=== PATIENT | female | born 1950 | race African-American/Black ===

== ENCOUNTER 2019-10-02 11:39 | Inpatient (IN) ==
[2019-10-02] MEDS ORDERED: ASPIRIN PO ONE (11:47)
[2019-10-02 12:11] LABS: EOS# 0.02 X1000 (0.0-0.7); EOS% 0.2 % (0.0-10.0); HEMATOCRIT 37.8 % (37.0-47.0); HEMOGLOBIN 12.5 g/dL (12.0-16.0); IMM GRAN# 0.05 X1000 (0.0-0.04); IMM GRAN% 0.4 % (0.0-0.5); LYMPH# 5.66 X1000 (1.2-3.4); LYMPH% 42.8 % (20.5-51.1); MCH 22.1 PG (27-31); MCHC 33.1 g/dL (33-37); MCV 66.8 FL (81-99); MONO# 0.84 X1000 (0.11-0.59); MONO% 6.4 % (1.7-9.3); MPV 12.2 FL (7.4-10.4); NEUT# 6.64 X1000 (1.4-6.5); NEUT% 50.2 % (42.2-75.2); PLT 212 X1000 (130-400); RBC 5.66 XMIL (4.2-5.4); RDW 16.1 % (11.5-14.5); WBC 13.21 X1000 (4.8-10.8)
--- NOTE | 2019-10-02 12:21 | Diag Imaging Result Doc PS360 ---
EXAM: CHEST-2 VIEWS 10/02/2019 HISTORY: chest pain TECHNIQUE: PA and lateral chest COMMENT: Compared to 07/15/2018 there has been no significant change in the appearance of the chest. IMPRESSION: No evidence of acute disease. Electronically signed by Liban Klein 10/02/2019 12:19 PM
--- NOTE | 2019-10-02 12:25 | EKG Report ---
Test Performed on : 10/02/2019 11:49:11 AM Test Reason : chest pain Blood Pressure : / mmHG Vent. Rate : 099 BPM Atrial Rate : 099 BPM P-R Int : 124 ms QRS Dur : 078 ms QT Int : 320 ms P-R-T Axes : 062 040 058 degrees QTc Int : 410 ms Normal sinus rhythm. Normal ECG When compared with ECG of 04-DEC-2009 14:23, T wave inversion no longer evident in Inferior leads Unconfirmed Result
[2019-10-02 12:33] LABS: ALBUMIN 4.1 g/dL (3.5-5.0); CALCIUM 9.4 mg/dL (8.8-10.2); CREATININE 1.1 mg/dL (0.5-0.9); POTASSIUM 4.4 mmol/L (3.5-5.1); TOTAL BILIRUBIN 0.5 mg/dL (0.20-1.00); TOTAL PROTEIN 6.8 g/dL (6.3-8.3)
[2019-10-02 12:43] LABS: INR 0.99; PROTIME 13.6 Seconds (11.0-16.0)
[2019-10-02] MEDS ORDERED: PEPCID IV ONE (13:27)
[2019-10-02] MEDS ORDERED: G.I. COCKTAIL PO ONE (13:27)
[2019-10-02] MEDS ORDERED: PROTONIX IV ONE (13:27)
[2019-10-02] MEDS ORDERED: ZOFRAN IV ONE (13:27)
[2019-10-02] MEDS ORDERED: SODIUM CHLORIDE 0.9% INJ ONE ×2 (13:29)
--- NOTE | 2019-10-02 14:15 | PROVIDER DOCUMENTATION ---
This chart was entered by Malia Lewis Scribe, acting as scribe for Wilfredo Epps MD. HPI-Chest Pain - General Chief Complaint: Chest Pain Stated Complaint: CHEST PAIN Time Seen by Provider: 10/02/19 11:51 Source: patient Allergies/Adverse Reactions: Patient Allergies Allergy/AdvReac Type Severity Reaction Status Date / Time codeine Allergy SWELLING Verified 07/12/18 21:10 ibuprofen Allergy Unknown Verified 07/12/18 21:10 Iodinated Contrast Media Allergy ANAPHYLAXIS Verified 07/12/18 21:10 meloxicam [From Mobic] Allergy ITCHING Verified 07/12/18 21:10 Penicillins Allergy ITCHING Verified 07/12/18 21:10 saccharin Allergy SWELLING Verified 07/12/18 21:10 Sulfa (Sulfonamide Allergy SWELLING Verified 07/12/18 21:10 Antibiotics) sulfamethoxazole Allergy ITCHING Verified 07/12/18 21:10 [From Bactrim] trimethoprim [From Bactrim] Allergy ITCHING Verified 07/12/18 21:10 levofloxacin [From Levaquin] AdvReac Unknown Verified 07/12/18 21:10 Xqxvyep-And-Ceq Reductase AdvReac Unknown Verified 07/12/18 21:10 Inhibitor Home Medications: Home Medication List Medication Instructions Recorded Confirmed Last Taken Type Escitalopram Oxalate [Lexapro] 10 mg PO DAILY 06/14/16 07/13/18 07/12/18 09:00 History Lisinopril 10 mg PO DAILY 06/14/16 07/13/18 07/12/18 09:00 History Loratadine [Claritin] 10 mg PO DAILY 08/14/16 07/13/18 07/11/18 07:00 History Lorazepam [Ativan] 1 mg PO BID 08/14/16 07/13/18 07/11/18 22:00 History Multivitamins/Minerals [Centrum 1 each PO DAILY 08/14/16 07/13/18 07/12/18 09:00 History Tablet] Omeprazole [Prilosec] 40 mg PO BID #60 capsule. 08/15/16 07/13/18 07/11/18 22:00 Rx Mometasone/Formoterol [Dulera 100 2 puff INH BID 01/05/18 07/13/18 07/08/18 09:00 History Mcg/5 Mcg Inhaler] Aspirin [Aspir-Low] 81 mg PO DAILY 07/13/18 07/13/18 07/12/18 08:00 History Albuterol Sulfate Inhaler 2 puff INH Q4H PRN PRN #1 inhaler 07/16/18 Unknown Rx [Ventolin Hfa] Amitriptyline HCl 20 mg PO HS #0 07/16/18 07/13/18 07/11/18 22:00 Rx Cephalexin [Keflex] 500 mg PO BID #20 cap 07/16/18 Unknown Rx Dicyclomine [Bentyl] 10 mg PO 4XDAY PRN PRN #60 cap 07/16/18 Unknown Rx Fluconazole 150 mg PO DAILY #3 tab 07/16/18 Unknown Rx - History of Present Illness-CP Nature of Presenting Problem: 69 yobf presents to the ed with c/o acute onset central chest pain and bilateral ear pain 15 minutes prior to arrival. pt sts pain is 9/10 on exam but appears to be in no distress and is nontoxic in appearance. pt has hx of HTN but sts no cardiac issues Location: reports: central Chest Pain Radiation: reports: other (bilateral ear pain) Quality of Pain: reports: aching Severity in ED: mild (pt sts severe but is in no distress) Onset/Duration: other (15 minutes prior to arrival) Timing: still present (intermittent), intermittent Context/Activities at Onset: reports: light activity Modifying Factors: improves with: nothing Associated Symptoms: denies: abdominal pain, back pain, diaphoresis, dizziness, nausea, shortness of breath, vomiting Nitro Today/Relief: no nitro taken today Aspirin Treatment Today: 325 mg x 1, provided by ED Prior Chest Pain/Cardiac Workup: reports: no prior chest pain Similar Symptoms Previously?: No Recently Seen Here or By Another Healthcare Provider: No Review of Systems - Adult - REVIEW OF SYSTEMS - ADULT Constitutional: denies: chills, fever Eyes: reports: no symptoms reported Ears, Nose, Mouth & Throat: reports: no symptoms reported Cardiovascular: reports: see HPI, chest pain. denies: palpitations, syncope Respiratory: denies: cough, pleurisy, shortness of breath, wheezing Gastrointestinal: denies: abdominal pain, diarrhea, nausea, vomiting Genitourinary: reports: no symptoms reported Musculoskeletal: denies: back pain, neck pain Integumentary: reports: no symptoms reported Neurological: denies: dizziness/vertigo, headache/migraines Psychiatric: reports: no symptoms reported Endocrine: reports: no symptoms reported Hematologic/Lymphatic: reports: no symptoms reported Allergic/Immunologic: reports: no symptoms reported All Other Systems: Reviewed and Negative Past History - Adult - PAST MEDICAL HISTORY-ADULT Review of Records: reports: Nursing Assessment Review, Medications Reviewed, Social history reviewed & non-contributory. Major Childhood Illnesses: reports: denies history Cardiovascular: reports: HTN Respiratory: reports: denies history Gastrointestinal: reports: denies history Obstetrical/Gynecological: reports: denies history Genitourinary: reports: denies history Musculoskeletal: reports: denies history Neurological: reports: denies history Psychiatric: reports: anxiety Endocrine/Immune: reports: Diabetes Diabetes Type: Type 2 Other Conditions: reports: denies history - PRIOR SURGERIES/PROCEDURES Surgical/Procedure History: reports: cholecystectomy, hysterectomy - IMMUNIZATION STATUS Childhood Immunizations: See Nurse Assessment Flu Vaccine: See Nurse Assessment - FAMILY HISTORY Family History: reviewed, not pertinent - SOCIAL HISTORY Smoking: denies Substance Use: denies Living Situation: family Physical Exam-General - PHYSICAL EXAM-ADULT Initial Vital Signs Reviewed: Yes - CONSTITUTIONAL General Appearance: appears well, alert, no apparent distress (pt is nontoxic in appearance and sts pain is 9/10 on exam but is in no distress), obese - EYES Eyes: PERRL/EOMI, pink conjunctivae - HEAD, EARS, NOSE, MOUTH & THROAT HENMT: moist mucous membranes, normal ENT inspection - NECK Neck: non-tender, full range of motion, supple - RESPIRATORY Respiratory: chest non-tender, lungs clear, normal breath sounds - CARDIOVASCULAR Cardiovascular: normal peripheral pulses, tachycardia (101) - CHEST (BREASTS) Chest/Breast: no tenderness - GASTROINTESTINAL (ABDOMEN) Abdominal Exam: normal bowel sounds, non tender, soft - GENITOURINARY Female Genitalia/Pelvic Exam: deferred Rectal Exam: deferred Hemoccult Exam: deferred - LYMPHATIC Lymphatic: no adenopathy - MUSCULOSKELETAL Back Exam: no CVA tenderness, no vertebral tenderness Extremity: normal range of motion, non-tender, normal gait, normal inspection - SKIN Integumentary: normal color, normal turgor, warm/dry - NEUROLOGIC Neurologic: grossly normal - PSYCHIATRIC Psych/Mental Status: normal mood/affect, normal thought content, normal thought process, oriented x 3 - HEART Score HEART Score: History: Slightly Suspicious HEART Score: ECG: Normal HEART Score: Age: > or = 65 Years HEART Score: Risk Factors for Atherosclerotic Disease: 1 or 2 Risk Factors HEART Score: Troponin: < or = Normal Limit Total HEART Score:: 3 Progress - PLAN OF CARE/RESULTS Progress/Plan/Lab Results: Vital Signs - 8 hr 10/02/19 11:43 Temperature 97.8 F Pulse Rate 101 H Respiratory Rate 20 Blood Pressure 140/96 O2 Sat by Pulse Oximetry 95 Laboratory Results - last 24 hr 10/02/19 10/02/19 10/02/19 11:56 11:56 11:56 WBC 13.21 H RBC 5.66 H Hgb 12.5 Hct 37.8 MCV 66.8 L MCH 22.1 L MCHC 33.1 RDW Std Deviation 16.1 H Plt Count 212 MPV 12.2 H Immature Gran % (Auto) 0.4 Neut % (Auto) 50.2 Lymph % (Auto) 42.8 [place] % (Auto) 6.4 Eos % (Auto) 0.2 Baso % (Auto) 0.0 Immature Gran # (Auto) 0.05 H Neut # (Auto) 6.64 H Lymph # (Auto) 5.66 H [place] # (Auto) 0.84 H Eos # (Auto) 0.02 Baso # (Auto) 0.00 PT INR PTT (Actin FS) D-Dimer, Quantitative Sodium 139 Potassium 4.4 Chloride 103 Carbon Dioxide 23 L Anion Gap 14 BUN 23 H Creatinine 1.1 H Estimated GFR/1.73 m2 49 BUN/Creatinine Ratio 21 Glucose 122 H Calculated Osmolality 283 Calcium 9.4 Total Bilirubin 0.50 AST 20 ALT 39 H Alkaline Phosphatase 71 Troponin T High Sens Aor-A-Wiwootrcluh Pept 30 Total Protein 6.8 Albumin 4.1 Globulin 3.0 Albumin/Globulin Ratio 2.0 10/02/19 10/02/19 10/02/19 11:56 11:56 11:56 WBC RBC Hgb Hct MCV MCH MCHC RDW Std Deviation Plt Count MPV Immature Gran % (Auto) Neut % (Auto) Lymph % (Auto) [place] % (Auto) Eos % (Auto) Baso % (Auto) Immature Gran # (Auto) Neut # (Auto) Lymph # (Auto) [place] # (Auto) Eos # (Auto) Baso # (Auto) PT 13.6 INR 0.99 PTT (Actin FS) 22.0 L D-Dimer, Quantitative 0.56 H Sodium Potassium Chloride Carbon Dioxide Anion Gap BUN Creatinine Estimated GFR/1.73 m2 BUN/Creatinine Ratio Glucose Calculated Osmolality Calcium Total Bilirubin AST ALT Alkaline Phosphatase Troponin T High Sens 15 Vku-A-Ywbblpgahmz Pept Total Protein Albumin Globulin Albumin/Globulin Ratio Orders Category Date Time Status Cardiac Monitoring DIRECTED Care 10/02/19 11:47 Active Oxygen Therapy- ED Nursing DIRECTED Care 10/02/19 11:47 Active Saline Loc NOW Care 10/02/19 11:47 Active CHEST-2 VIEWS [RAD] Stat Exams 10/02/19 11:47 Completed CBC WITH ELECTRONIC DIFF [HEME] Stat Lab 10/02/19 11:56 Completed COMPREHENSIVE METABOLIC PANEL [CHEM] Stat Lab 10/02/19 11:56 Completed D-DIMER [COAG] Stat Lab 10/02/19 11:56 Completed LIPASE [CHEM] Stat Lab 10/02/19 13:59 Ordered PRO B-NATRIURETIC PEPTIDE Stat Lab 10/02/19 11:56 Completed PROTIME WITH INR [COAG] Stat Lab 10/02/19 11:56 Completed PTT [COAG] Stat Lab 10/02/19 11:56 Completed TROPONIN T HIGH SENSITIVITY Stat Lab 10/02/19 11:56 Completed Aspirin Med 10/02/19 11:47 Discontinued 325 mg PO NOW ONE Famotidine [Pepcid] Med 10/02/19 13:27 Discontinued 20 mg IV NOW ONE Lido/Cochran Alk/Al&mg Hydrox [G.i. Cocktail] Med 10/02/19 13:27 Discontinued 30 ml PO NOW ONE Ondansetron [Zofran] Med 10/02/19 13:27 Discontinued 4 mg IV NOW ONE Pantoprazole [Protonix] Med 10/02/19 13:27 Discontinued 40 mg IV NOW ONE Sodium Chloride 0.9% Med 10/02/19 13:29 Discontinued 10 ml INJ NOW ONE Sodium Chloride 0.9% Med 10/02/19 13:29 Discontinued 5 - 10 ml INJ NOW ONE CP/SOB/Palp >45 yrs of Age Stat Oth 10/02/19 11:47 Ordered EKG [EKG] Stat Ther 10/02/19 11:47 Draft Result Diagrams: 10/02/19 11:56 10/02/19 11:56 - REASSESSMENT Reassessment #1 Time Reassessed: 13:55 Status: improving (CP MINIMAL JUST NOW, NOT SOB. PT DISPLAYS SUDDEN ONSET STERNAL PAIN, NO FALL OR INJURY. VERY TENDER STERNUM. NL TROPONIN, ELEVATED D- DIMER ALLERGIC TO CONTRAST DYE.) - EKG 1 Time of EKG reading by physician:: 11:49 EKG Read and Signed by:: Wilfredo Epps EKG Interpretation (*Must complete 3 of following elements*): Normal Rate: 99 Rhythm: nsr [place]: normal QRS: normal OR Interval: normal ST Wave: normal - XRAY 1 XRAY: Bilateral XRAY Study: Chest Impression: See EMR Report (EXAM: CHEST-2 VIEWS 10/02/2019 HISTORY: chest pain TECHNIQUE: PA and lateral chest COMMENT: Compared to 07/15/2018 there has been no significant change in the appearance of the chest. IMPRESSION: No evidence of acute disease. Electronically signed by Liban Klein 10/02/2019 12:19 PM 10/02/19 1219 Interpreting Physician: Liban Klein MD Dictated Date/Time: 10/02/19 1219 cc: Wilfredo Epps MD; Pradeep Wiley MD) - CONSULTS/PCP/HOSPITALIST Notification #1 *Consult/PCP/Hospitalist*: hospitalist dr murillo Time Discussed: 14:02 Consult Disposition: Will see in ED, Admit Departure - Departure Date of Disposition Decision: 10/02/19 Time of Disposition Decision: 14:13 DIAGNOSIS: Chest pain in adult, Elevated d-dimer Leukocytosis, unspecified Qualifiers: Leukocytosis type: other Qualified Code(s): D72.828 - Other elevated white blood cell count Disposition: ADMITTED INPATIENT 09 Certified Medical Emergency: Emergent Condition: Fair Referrals and Follow-Ups: Pradeep Wiley MD [Primary Care Provider] - - Critical Care Note This patient required my direct & personal management of CC.: No Attestation - Physician/ TANESHA Attestation Patient care was provided by Advanced Practice Provider:: No The physician spent face to face time with patient:: Yes Advanced Practice Provider documentation review:: Supervising physician onsite and consulted in the evaluation and care of this patient. The physician did have a face to face encounter with the patient. This chart was documented by the indicated scribe, (Malia Lewis Tri) and accurately reflects the services I performed and decisions made by me, Wilfredo Epps MD, as attested by the provider's signature.
[2019-10-02] MEDS ORDERED: ZOFRAN IV PRN (15:31)
[2019-10-02] MEDS ORDERED: TYLENOL PO PRN (15:31)
[2019-10-02] MEDS ORDERED: NITROGLYCERIN SL PRN (15:31)
[2019-10-02] MEDS ORDERED: NS 1,000 ML IV ONE (15:38)
[2019-10-02] MEDS ORDERED: DUONEB (A & A) INH PRN (15:38)
[2019-10-02] MEDS ORDERED: NORCO-5 PO PRN (15:52)
[2019-10-02] MEDS ORDERED: DUONEB (A & A) INH ONE (15:56)
[2019-10-02] MEDS: HUMALOG (PARKWAY) SUBQ SCH ×2 (16:00→22:50)
[2019-10-02 16:22] LABS: URINE SOURCE CLEAN CATCH
[2019-10-02 16:27] LABS: BILIRUBIN URINE NEGATIVE (NEGATIVE); BLOOD URINE NEGATIVE (NEGATIVE); COLOR YELLOW; GLUCOSE URINE NEGATIVE (NEGATIVE); KETONE URINE NEGATIVE (NEGATIVE); LEUKOCYTES URINE NEGATIVE (NEGATIVE); NITRITE URINE NEGATIVE (NEGATIVE); PH URINE 5.5; PROTEIN URINE NEGATIVE (NEGATIVE); SP GRAVITY URINE 1.007; TURBIDITY URINE CLEAR (CLEAR); UROBILINOGEN URINE NORMAL (NORMAL)
[2019-10-02 16:29] LABS: UR EPITHELIAL CELLS <10 /HPF (<10); URINE BACTERIA NEGATIVE /HPF; URINE RBC <10 /HPF (<10); URINE WBC <10 /HPF (<10)
[2019-10-02 16:34] LABS: CALCIUM 9.2 mg/dL (8.8-10.2); CREATININE 1.1 mg/dL (0.5-0.9); POTASSIUM 4.2 mmol/L (3.5-5.1)
--- NOTE | 2019-10-02 21:57 | HISTORY AND PHYSICAL ---
CHIEF COMPLAINT: Chest pain. ORDER DEPARTMENT SUPERVISOR: Pradeep Wiley MD HISTORY OF PRESENT ILLNESS: Ms. Clemente is a 69-year-old -[place] female who presents with past medical history of diabetes mellitus type 2, hypertension, situational anxiety, situational depression, hyperlipidemia, diverticulosis, and colon polyps with GI bleed. The patient presents to the ER today with chest pain. The patient states she was at a store today with her when suddenly she started having chest pain to the mid epigastric area that satinder up into the chest wall and circled around to her back. It actually radiated up into the neck and the chin. The patient states this is the worst pain she has ever felt in her life. She stated the pain lasted for about 20 minutes. It stopped for about 20 minutes. It then occurred again, lasted for about 10 minutes and then subsided. She states she has not had any more pain anymore and has not had any more pain since. The patient is complaining of some tenderness in the midsternal region with palpation. The patient is also complaining of some dizziness, headache, and cough. The patient states she had the flu in August. She was being treated with albuterol and prednisone by her campus security director, Dr. Gutiérrez. She did have a very bad cough with this flu and she is still getting over that cough. She states she was very sick. The patient does deny any fevers, chills, congestion, excessive thirst, palpitations, orthopnea, PND, leg edema, dyspnea, hemoptysis, nausea, vomiting, diarrhea, constipation, dysuria, hematuria, melena, hematemesis, muscle pain, vertigo, syncope, memory loss, or any other pertinent symptoms at this time. REVIEW OF SYSTEMS: A 10 point review of systems has been obtained. All are negative except what is stated above in the HPI. PAST MEDICAL HISTORY: 1. Diverticulosis. 2. Colon polyps with GI bleed. 3. Hyperlipidemia. 4. Diabetes mellitus type 2. 5. Situational anxiety. 6. Situational depression. 7. Hypertension. PAST SURGICAL HISTORY: 1. Anal fissure surgery. 2. Hysterectomy. 3. Cholecystectomy. 4. Esophageal stretching. SOCIAL HISTORY: Patient denies any smoking, alcohol or illicit drug use. 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 FAMILY HISTORY: Known history of coronary artery disease. ALLERGIES: Codeine, ibuprofen, iodine contrast, Mobic, Bactrim, penicillin, and Levaquin. HOME MEDICATIONS: Medications have not been reconciled in the computer. Please see medication reconciliation sheet once they are reconciled. PHYSICAL EXAMINATION: VITAL SIGNS: Temperature 97.8 degrees, pulse rate 101, respiratory rate 20, blood pressure 140/96, O2 saturation 95% on room air. Weight 285 pounds. Height 5 feet 3 inches. GENERAL: This is a 69-year-old -[place] female. She is lying in the ER stretcher. She is well nourished and well developed. She is in no acute distress. HEENT: Atraumatic, normocephalic. Pupils equal, round, reactive to light. Mucous membranes are moist. NECK: Supple. No lymphadenopathy. Trachea is midline. No JVD. No thyromegaly. No bruit. CV: Regular rate and rhythm. No murmurs, gallops, or rubs appreciated. RESPIRATORY: Lung sounds clear. Equal chest excursion. Respirations nonlabored. No accessory muscle usage. GI.: Abdomen soft, nontender, nondistended. Bowel sounds x4. : No CVA tenderness noted. The patient is voiding without difficulty. NEUROLOGIC: The patient is awake, alert, and oriented, able to follow all commands appropriately. MUSCULOSKELETAL: Full strength noted. No abnormalities. No deformities. EXTREMITIES: No clubbing, no cyanosis. No edema. DP and PT pulses present palpable. SKIN: Warm, dry, and intact. No rashes. No bruises. No diaphoresis. There is tenderness noted to the midsternal area. LABORATORY AND DIAGNOSTICS: White blood cell count 13.21, red blood cell count 5.66, hemoglobin 12.5, hematocrit 37.8, platelet count 212,000. PT 13.6, INR 0.99, PTT 22.0. D- dimer 0.56. Sodium 139, potassium 4.4, chloride 103, carbon dioxide 23, BUN is 23, creatinine 1.1, estimated GFR 49, glucose 122. Chest x-ray shows no evidence of acute disease. ASSESSMENT: 1. Chest pain, rule out acute coronary syndrome. 2. Leukocytosis. 3. Elevated D-dimer. 4. Diabetes mellitus type 2. 5. Hypertension. 6. Situational anxiety. 7. Situation depression. 8. Hyperlipidemia. PLAN: We will admit this patient to the medical floor. We will do cardiac enzymes q.8 hours x3, troponins q.8 hours x3. Initial troponin level was 15. The patient did have a mildly elevated D- dimer 0.56. I would not place this patient on anticoagulation at this time. The patient does have a history of GI bleed from her colon polyps. Any time she has ever taken any NSAIDs, she has had some bleeding. We will hold off and do a VQ lung scan. Patient is allergic to iodine. We cannot do a CT scan. I have discussed this with the patient and discussed the risks. She is agreeable to this plan. The patient is not short of breath at this time. She is on room air, saturating 100%. She has not complained of any leg pain and has not had any leg pain. The patient is not currently having any chest pain at this time and has not had any in quite some time. I will provide her with some p.r.n. [place] as needed for pain. We will provide her with some p.r.n. Zofran as needed for pain for nausea. I will provide her with a diabetic diet. I have provided her with some IV fluid hydration for her leukocytosis. She is having some mid sternal discomfort on palpation. This could be from her coughing. I have provided her with albuterol breathing treatments p.r.n. I have started her on sliding scale insulin with low-dose Humalog. I will resume her home medications once reconciled in the computer. For DVT prophylaxis, I have provided her with SCDs. I have ordered repeat labs for in the morning and the VQ lung scan. Dictated by MJ Doonvan for Yuval Henao MD cc: MD Pradeep Cruz MD MTDD
[2019-10-03] MEDS ORDERED: VENTOLIN HFA INH PRN (02:18)
--- NOTE | 2019-10-03 03:58 | HISTORY AND PHYSICAL ---
ADDENDUM: Patient seen and examined by myself. Full note dictated and discussed with nurse practitioner. Patient presented to the hospital with diffuse chest pain. It seems to have started on the right side of her chest, radiated down to the right lower quadrant and up to bilateral chest and her right shoulder. It certainly seems to be more of a migratory type pain. She does note that she has had pain like this before. Currently, states the pain is better. In the ER, she was noted to have very minimally elevated D-dimer. We do not have any previous on record. She does have allergies to IV dye. Therefore, she cannot have a CT scan. We are going to admit her and place her on chest pain rule out protocol. We will also get a V/Q scan. Given her history of bleeding with this anticoagulants, we are not going to start those currently. White count is elevated, but she also just recently is getting over the flu. cc: Yuval Henao MD
[2019-10-03] MEDS: HUMALOG (PARKWAY) SUBQ SCH ×2 (06:31→12:32)
[2019-10-03] MEDS ORDERED: PRILOSEC PO SCH ×2 (07:00)
[2019-10-03] MEDS ORDERED: DULERA 200 MCG/5 MCG INHALER INH SCH (07:30)
[2019-10-03 07:35] VITALS: BP 105/52
[2019-10-03 08:57] LABS: BASO# 0.01 X1000 (0.0-0.2); BASO% 0.1 % (0.0-0.8); EOS# 0.05 X1000 (0.0-0.7); EOS% 0.5 % (0.0-10.0); HEMATOCRIT 39.2 % (37.0-47.0); HEMOGLOBIN 12.5 g/dL (12.0-16.0); IMM GRAN# 0.01 X1000 (0.0-0.04); IMM GRAN% 0.1 % (0.0-0.5); LYMPH# 5.28 X1000 (1.2-3.4); MCH 21.6 PG (27-31); MCHC 31.9 g/dL (33-37); MCV 67.8 FL (81-99); MONO# 0.52 X1000 (0.11-0.59); MONO% 5.7 % (1.7-9.3); NEUT# 3.23 X1000 (1.4-6.5); NEUT% 35.6 % (42.2-75.2); PLT 216 X1000 (130-400); RBC 5.78 XMIL (4.2-5.4); RDW 16.6 % (11.5-14.5)
[2019-10-03] MEDS ORDERED: PRINIVIL PO SCH (09:00)
[2019-10-03] MEDS ORDERED: CLARITIN PO SCH (09:00)
[2019-10-03] MEDS ORDERED: ASPIRIN EC PO SCH (09:00)
[2019-10-03] MEDS ORDERED: THERA M PLUS PO SCH (09:00)
[2019-10-03] MEDS ORDERED: ATIVAN PO SCH (09:00)
[2019-10-03] MEDS ORDERED: LEXAPRO PO SCH (09:00)
--- NOTE | 2019-10-03 10:34 | Diag Imaging Result Doc PS360 ---
EXAM: LUNG SCAN / VQ - 10/03/2019 HISTORY: r/o pe TECHNIQUE: Lung ventilation/perfusion scan. Ventilation images performed using 39.4 mCi technetium 99m DTPA aerosol inhaled. Perfusion images performed using 5.7 mCi technetium 99m MAA administered intravenously. Ventilation perfusion images are obtained in multiple projections over the lungs. COMPARISON: Exam is correlated with the 10/02/2019 chest radiographs FINDINGS: There is relatively homogeneous ventilation and perfusion. There is no ventilation/perfusion mismatch (area which is ventilated but not perfused) identified. IMPRESSION: Low probability for pulmonary embolism. Electronically signed by Tommy Hemphill 10/03/2019 10:31 AM
[2019-10-03] MEDS ORDERED: ELAVIL PO SCH (21:00)
--- NOTE | 2019-10-05 02:26 | DISCHARGE SUMMARY ---
ADMISSION DATE: 10/02/2019 DISCHARGE DATE: 10/03/2019 DISCHARGE DIAGNOSES: 1. Chest pain, resolved. 2. Elevated D-dimer with negative V/Q scan. 3. Morbid obesity. 4. Situational anxiety. 5. Situational depression. 6. Hyperlipidemia. 7. Diabetes type 2. CONSULTATION: None. PROCEDURES: None. BRIEF HOSPITAL COURSE: The patient is a morbidly obese 69-year-old female who presented to the hospital with chest pain with an unusual presentation that started close to her right upper quadrant, transitioned across her chest up to her left chest wall, left shoulder and back of her right shoulder. Notes that she had some nausea with it. It also sometimes radiated down into her right flank area. Thankfully, her enzymes were negative. V/Q scan was negative. Her symptoms resolved. Her chest pain was improved and therefore she will be discharged home. DISPOSITION: No changes made on patient's home medications as noted on her admission. She will follow up outpatient with her primary care in 1 to 2 weeks, sooner if symptoms worsen or return. TIME: Greater than 30 minutes. cc: Yuval Henao MD
== END 2019-10-03 12:31 | disposition home or self-care (01) | DRG 313 ==
LOC: P.ED 11:39 → P.MEDSURG 18:11
PROVIDERS: ADMIT Family Medicine